=== PATIENT | male | born 1945 | race Caucasian/White ===

== ENCOUNTER 2016-07-07 05:32 | Inpatient (IN) | payer MEDICARE, OTHER ==
[~2016-07-07 05:32] MED LIST: AMITRIPTYLINE H10 M1 PO; ASPIRIN81 M1 PO; PLAVIX75 M1 PO; TENORMIN100 M1 PO; XANAX1 M1 PO
[2016-07-08] MEDS ORDERED: NORCO 5-325 TA1 EACH PO (14:33)
[2016-07-08] MEDS ORDERED: LIPITOR20 M1 PO (14:34)
== END 2016-07-08 15:00 | DRG 39 ==
LOC: SHSB 05:32 → ORW 07:31 → PACU 10:00 → PCUA 11:49
PROVIDERS: ADMIT Surgery Vascular Surgery
PROC: 03CL0ZZ Extirpation of Matter from Left Internal Carotid Artery, Open Approach (ICD-10-PCS; principal; 2016-07-07)
PROC: 03UJ0KZ Supplement Left Common Carotid Artery with Nonautologous Tissue Substitute, Open Approach (ICD-10-PCS; 2016-07-07)
DX: I65.22 Occlusion and stenosis of left carotid artery (principal); I10 Essential (primary) hypertension; I73.9 Peripheral vascular disease, unspecified; F41.9 Anxiety disorder, unspecified; Z87.891 Personal history of nicotine dependence
CPT/HCPCS: C2628; J0690; J1580; J1644; J2250; J2270; J2720; J7030; J7040